=== PATIENT | female | born 1930 | race Caucasian/White ===

== ENCOUNTER 2019-09-27 18:38 | Emergency (ER) | payer MEDICARE ==
[~2019-09-27] VITALS: Ht 165.1 cm; Wt 72.6 kg
[~2019-09-27 18:38] MED LIST: ASPI-84 PO; CALC-157 PO; LEVO88TA2 PO; SIMV20TA2 PO
--- NOTE | 2019-09-27 18:45 | NUR ---
EVERARDO FROM [facility] FOR WORSENING BACK PAIN FROM S/P FALL 1 WEEK AGO DENIES -KO NO MEDICAL HX. PATIENT A/OX4, BREATHING EVEN AND UNLABORED, NO SOB NOTED, NEEDS ATTENDED. KEPT COMFORTABLE.
--- NOTE | 2019-09-27 19:02 | NUR ---
PATIENT REFUSED TO GIVE URINE SAMPLE, STATED "IM NOT HERE FOR THAT, IM HERE FOR BACK PAIN BECAUSE I FELL A FEW DAYS AGO" EXPLAINED RISKS AND BENEFITS. STILL REFUSED. DR. PAYNE MADE AWARE.
--- NOTE | 2019-09-27 19:24 | NUR ---
PATIENT CAME BACK FROM CT. ENDORSED TO [facility] FOR LILIANA.
--- NOTE | 2019-09-27 19:35 | NUR ---
PT APPEARS TO BE RESTING COMFORTABLY IN BED. WILL CONTINUE TO MONITOR THE PT.
--- NOTE | 2019-09-27 19:59 | NUR ---
DR PAYNE IS AT THE BEDSIDE SPEAKING TO THE PT RE: IMAGING FINDINGS.
--- NOTE | 2019-09-27 20:15 | NUR ---
CALLING SUNNY RE: [place]SP[place] [facility]. TRIP #: [id number] ETA: 45 MINS TO 1 HR
[2019-09-27] MEDS ORDERED: ACETAMINOPHEN W/ CODEINE#3 1 EA TABLET ONE (20:42)
[2019-09-27] MEDS: ACETAMINOPHEN W/ CODEINE#3 1 EA TABLET PO ONE (20:47)
--- NOTE | 2019-09-27 21:02 | NUR ---
REPORT GIVEN TO SUNNY MEDICAL ENGINEER. Patient discharged to home in stable condition. Written and verbal after care instructions given. Patient verbalizes understanding of instruction AND RX. COPY OF IMAGING FINDINGS AND DC PAPERWORK WAS GIVEN TO SUNNY EMT.
[2019-09-27 21:05] VITALS: BP 142/76
[2019-10-01] MEDS ORDERED: HYDR-3972 PO (16:57)
== END 2019-09-27 21:05 | disposition home or self-care (01) ==
LOC: ER 18:40
DX: S32.19XA Other fracture of sacrum, initial encounter for closed fracture (principal); M54.5 Low back pain; G89.29 Other chronic pain; I10 Essential (primary) hypertension; E03.9 Hypothyroidism, unspecified; E78.00 Pure hypercholesterolemia, unspecified; Z86.73 Personal history of transient ischemic attack (TIA), and cerebral infarction without residual deficits; Z79.82 Long term (current) use of aspirin; Z79.899 Other long term (current) drug therapy; W18.39XA Other fall on same level, initial encounter; Y93.89 Activity, other specified; Y92.89 Other specified places as the place of occurrence of the external cause; Y99.8 Other external cause status
CPT/HCPCS: 72131-TC

== ENCOUNTER 2019-09-28 13:40 | Inpatient (IN) | payer MEDICARE ==
[~2019-09-28] VITALS: Ht 165.1 cm; Wt 74.8 kg
--- NOTE | 2019-09-28 13:50 | NUR ---
SENT BY PCP; THE PATIENT IS HAVING DIFFICULTY IN WALKING WHILE AT THE AL.
--- NOTE | 2019-09-28 13:52 | NUR ---
LUMBAR SPINE CT DONE - 09/27/2019: [place] [id number], [place], [place] [id number] RADIOLOGY REPORT Patient Name: CHUY TAMB: 1930, Sex: F MR#: [id number]#: [id number] : ER Exam: CT LUMBAR SPINE WO CONTRAST Order Date & Time: 09/27/191851 Service Date & Time: 09/27/19ttending Dr: Ordering Dr: SAMIRA PAYNE - Bed#: PROCEDURE: CT Lumbar Spine without contrast. CLINICAL INDICATION: Back pain. TECHNIQUE: CT scan of the lumbar spine was performed on a multi-detector high-resolution CT scanner. Contiguous axial images were obtained without intravenous contrast. Coronal and sagittal reformatted images were also obtained. Images were reviewed on the PACS workstation. DICOM images are available. One or more of the following dose reduction techniques were used: - Automated exposure control. - Adjustment of the mA and/or kV according to patient size. - Use of iterative reconstruction technique. Exam CTD/vol = 17.38 mGy. Total exam DLP = 709.19 mGy-cm. COMPARISON: 09/12/2019. FINDINGS: There are subtle deformities of the S3 and S4 sacral vertebral bodies with mild presacral stranding suspicious for fractures. There is moderate levoscoliosis of the lumbar spine centered at L3. There is right lateral subluxation of the L2 on L3 measuring 9 mm. There is mild left lateral subluxation of the L4 on L5 measuring 5 mm. Lumbar vertebral body heights are within normal limits. There is no acute fracture of the lumbar spine. There are small to moderate marginal osteophytes at multiple levels. At T12-L1, the disk height is within normal limits. There is no central canal or neural foraminal stenosis. At L1-L2, there is mild loss of disc height and a mild diffuse disc osteophyte complex which combined with mild bilateral facet and ligamentum flavum hypertrophy results in mild to moderate central canal stenosis. There is mild to moderate bilateral neural foraminal stenosis. At L2-L3, there is mild loss of disc height and air vacuum phenomenon present. There is a moderate diffuse disc osteophyte complex which combined with mild bilateral facet and ligamentum flavum hypertrophy results in mild central canal stenosis. There is moderate to severe right neural foraminal stenosis. At L3-L4, there is moderate loss of disc height and air vacuum phenomenon. There is a moderate diffuse disc osteophyte complex which combined with mild bilateral facet and ligamentum flavum hypertrophy results in mild central canal stenosis. There is moderate to severe right neural foraminal stenosis. At L4-L5, there is mild loss of disc height and air vacuum phenomenon. There is a moderate posterior disc osteophyte complex which combined with moderate bilateral facet and ligamentum flavum hypertrophy results in mild central canal stenosis. There is moderate to severe right and mild left neural foraminal stenosis. At L5-S1, the disk height is within normal limits. There is no central canal or neural foraminal stenosis. There is no paraspinal mass or collection. There are atherosclerotic calcifications of the abdominal aorta. IMPRESSION: Subtle deformities of the S3 and S4 sacral vertebral bodies with mild presacral stranding suspicious for fractures, unchanged from 09/12/2019. Moderate lumbar levoscoliosis with lateral spondylolisthesis at L2-L3 and L4-L5. 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 There is multilevel central canal and neural foraminal stenosis as described. Dictated By: ANIRUDH TAMAYO MD Dictated Date/Time: 09/27/191939 Signed By: ANIRUDH TAMAYO MD Signed Date/Time: 09/27/191939
--- NOTE | 2019-09-28 14:00 | NUR ---
CALLED NURSING SUP FOR M/S BED.
[2019-09-28 14:15] LABS: BASOPHILS # (AUTO) 0.1 /CMM (0.0-0.2); BASOPHILS % (AUTO) 0.6 % (0.0-2.0); EOSINOPHILS % (AUTO) 1.2 % (0.0-6.0); HEMATOCRIT 40 % (33-45); HEMOGLOBIN 13.4 g/dL (11.5-14.8); LYMPHOCYTES # (AUTO) 1.6 /CMM (0.8-4.8); LYMPHOCYTES % (AUTO) 17.8 % (20.0-44.0); MEAN CORPUSCULAR HGB CONC 33 g/dl (31.0-36.0); MEAN CORPUSCULAR VOLUME 95 fL (82-100); MONOCYTES # (AUTO) 0.8 /CMM (0.1-1.30); MONOCYTES % (AUTO) 8.2 % (2.0-12.0); NEUTROPHILS # (AUTO) 6.7 /CMM (1.8-8.9); NEUTROPHILS % (AUTO) 72.2 % (43.0-81.0); PLATELET COUNT (AUTO) 321 /CMM (150-450); RED BLOOD CELL COUNT(AUTO) 4.22 MIL/uL (4.0-5.2); WHITE BLOOD COUNT (AUTO) 9.3 K/uL (4.3-11.0)
[2019-09-28] MEDS ORDERED: KETOROLAC TROMETHAMINE INJ 30 MG/ML VIAL IV ONE (14:30)
[2019-09-28 14:33] LABS: CALCIUM, SERUM 9.3 mg/dL (8.5-10.1); POTASSIUM 3.9 mmol/L (3.5-5.1)
[2019-09-28 14:39] LABS: ALBUMIN 3.2 g/dL (3.4-5.0); BILIRUBIN,DIRECT 0.1 mg/dL (0.0-0.2); BILIRUBIN,TOTAL 0.4 mg/dL (0.2-1.0); TOTAL PROTEIN, SERUM 6.9 g/dL (6.4-8.2)
[2019-09-28] MEDS ORDERED: KETOROLAC TROMETHAMINE 15 MG/ML VIAL ONE (14:45)
[2019-09-28 15:10] LABS: APPEARANCE,URINE SL CLOUDY (CLEAR); BILIRUBIN,URINE SMALL (NEGATIVE); BLOOD, URINE NEGATIVE Ery/uL (NEGATIVE); COLOR,URINE YELLOW (YELLOW); KETONES,URINE NEGATIVE (NEGATIVE); LEUKOCYTE ESTERASE ,URINE TRACE (NEGATIVE); NITRITE, URINE NEGATIVE (NEGATIVE); PH,URINE 5.5 (5.0-8.0); PROTEIN,URINE NEGATIVE (NEGATIVE); UGLUCOSE NEGATIVE (NEGATIVE); UROBILINOGEN,URINE 0.2 EU/dL (0.2)
[2019-09-28 15:16] LABS: BACTERIA,URINE Few /HPF (None Seen); RBC,URINE 0-2 /HPF (0-2); SQUAMOUS EPITHELIAL CELL,UR Few /HPF (None Seen)
--- NOTE | 2019-09-28 15:26 | NUR ---
PAGED [facility].
[2019-09-28] MEDS ORDERED: IV NS 0.9% 500 ML BAG IV ONE (15:30)
--- NOTE | 2019-09-28 15:44 | NUR ---
NURSING SUP GAVE M/S BED 304-1.
[2019-09-28] MEDS ORDERED: ZOLPIDEM TARTRATE 5 MG TABLET PO PRN (16:00)
[2019-09-28] MEDS ORDERED: IV NS 0.9% 1,000 ML IV ONE (16:00)
[2019-09-28] MEDS ORDERED: ONDANSETRON HCL/PF 4 MG/2 ML VIAL IVP PRN (16:00)
[2019-09-28] MEDS ORDERED: MAG HYDROX/AL HYDROX/SIMETH 30 ML UDC PO PRN (16:00)
[2019-09-28] MEDS ORDERED: Z GUARD REMEDY 2 OZ OINT TP PRN (16:00)
[2019-09-28] MEDS ORDERED: MAGNESIUM HYDROXIDE 30 ML UDC PO PRN (16:00)
[2019-09-28] MEDS ORDERED: ACETAMINOPHEN 325 MG TABLET PO PRN (16:00)
--- NOTE | 2019-09-28 16:02 | NUR ---
REPORT GIVEN TO SETH OF [facility]
--- NOTE | 2019-09-28 16:40 | NUR ---
MS RN NOTES PATIENT ADMITTED FROM ER REPORT GIVEN BY JEC RN, PATIENT ALERT ORIENTED X 3. NO ACUTE DISTRESS NOTED. BREATHING UNLABORED. ORIENTED TO THE ROOM. NEEDS ATTENDED. SAFETY MEASURES IN PLACE. CALL LIGHT WITHIN REACH. WILL CONTINUE TO MONITOR ACCORDINGLY.
--- NOTE | 2019-09-28 17:50 | NUR ---
MS RN NOTES PATIENT SEEN AND EVALUATED BY DR GRACIA COPE.
--- NOTE | 2019-09-28 19:15 | NUR ---
MS RN OPENING NOTES: RECEIVED PATIENT IN BED EATING DINNER, A/O X4. COMFORTABLE. NOT IN PAIN. CALL LIGHT WITHIN REACH. BED IN LOWEST AND LOCKED POSITION. BED ALARM ON.
--- NOTE | 2019-09-28 19:15 | NUR ---
MS RN NOTES PATIENT ALERT ORIENTED X 3. NO ACUTE DISTRESS NOTED. BREATHING UNLABORED. IV ACCESS PATENT AND INTACT. NEEDS ATTENDED AND ANTICIPATED. SAFETY MEASURES IN PLACE. CALL LIGHT WITHIN REACH. WILL ENDORSE TO NIGHT NURSE FOR CONTINUITY OF CARE.
[2019-09-28 20:00] VITALS: BP 133/66
--- NOTE | 2019-09-28 22:49 | NUR ---
INFORMED HOUSING INSPECTOR RONY RE: NO VTE PROPHYLAXIS, ORDERED SCD'S ON BOTH LEGS, AND APPLIED.
--- NOTE | 2019-09-28 23:33 | NUR ---
PATIENT REFUSED SCD's. EXPLAINED THE IMPORTANCE OF IT.
--- NOTE | 2019-09-29 05:00 | NUR ---
MS RN CLOSING NOTES: PATIENT IS RESTING COMFORTABLY IN BED. AWAKE ALERT AND ORIENTED X4. NO ACUTE EVENTS OVERNIGHT. BEDREST. CALL LIGHT WITHIN REACH. NO C/O PAIN. BED IN LOWEST AND LOCKED POSITION. BED ALARM ON.
--- NOTE | 2019-09-29 07:31 | NUR ---
MS RN OPENING NOTE RECEIVED PATIENT IN BED SLEEPING COMFORTABLY. PATIENT IN NO ACUTE DISTRESS. NO SOB NOTED. PATIENT BREATHING IS EVEN AND UNLABORED. PATIENT WITH NO FACIAL GRIMACING NOTED. SAFETY PRECAUTIONS IN PLACE. PATIENT BED IS LOCKED AND IN LOWEST POSITION. CALL LIGHT WITHIN REACH. WILL CONTINUE TO MONITOR.
[2019-09-29 08:00] VITALS: BP 140/71
[2019-09-29] MEDS: SIMVASTATIN 20 MG TABLET PO SCH (08:10)
[2019-09-29] MEDS: LEVOTHYROXINE SODIUM 88 MCG TABLET PO SCH (08:10)
[2019-09-29 08:48] LABS: BASOPHILS % (AUTO) 0.3 % (0.0-2.0); EOSINOPHILS % (AUTO) 1.7 % (0.0-6.0); HEMATOCRIT 37 % (33-45); HEMOGLOBIN 12.4 g/dL (11.5-14.8); LYMPHOCYTES # (AUTO) 1.4 /CMM (0.8-4.8); LYMPHOCYTES % (AUTO) 16.8 % (20.0-44.0); MEAN CORPUSCULAR HGB CONC 33 g/dl (31.0-36.0); MEAN CORPUSCULAR VOLUME 95 fL (82-100); MONOCYTES # (AUTO) 0.6 /CMM (0.1-1.30); MONOCYTES % (AUTO) 6.8 % (2.0-12.0); NEUTROPHILS # (AUTO) 6.2 /CMM (1.8-8.9); NEUTROPHILS % (AUTO) 74.4 % (43.0-81.0); PLATELET COUNT (AUTO) 287 /CMM (150-450); RED BLOOD CELL COUNT(AUTO) 3.95 MIL/uL (4.0-5.2); WHITE BLOOD COUNT (AUTO) 8.3 K/uL (4.3-11.0)
[2019-09-29 09:04] LABS: CALCIUM, SERUM 8.5 mg/dL (8.5-10.1); CREATININE 0.7 mg/dL (0.6-1.3); MAGNESIUM 1.9 mg/dL (1.8-2.4); PHOSPHORUS 2.6 mg/dL (2.5-4.9)
[2019-09-29] MEDS: IV NS 0.9% 1,000 ML BAG IV PRN (09:20)
[2019-09-29] MEDS: HYDROCODONE/APAP 5/325MG 1 EACH TABLET PO PRN ×2 (15:34→20:36)
[2019-09-29 16:00] VITALS: BP 141/67
--- NOTE | 2019-09-29 18:43 | NUR ---
MS RN CLOSING NOTE PATIENT IN BED RESTING COMFORTABLY. PATIENT IN NO ACUTE DISTRESS. NO SOB NOTED. PATIENT BREATHING IS EVEN AND UNLABORED. PATIENT EXPERIENCING 3/10 GENERALIZED PAIN BUT IS TOLERABLE PER PATIENT. PATIENT SON AT THE BEDSIDE. PATIENT KEPT CLEAN, DRY, AND COMFORTABLE THROUGHOUT SHIFT. PATIENT REPOSITIONED Q2H WITH EXTREMITIES OFFLOADED ON PILLOWS. PATIENT NEEDS AND CONCERNS ADDRESSED. PATIENT BED IS LOCKED AND IN LOWEST POSITION. CALL LIGHT WITHIN REACH. WILL ENDORSE CARE TO PM SHIFT FOR LILIANA.
--- NOTE | 2019-09-29 19:30 | NUR ---
MS RN OPENING NOTE RECEIVED PATIENT IN BED. A/OX4. TOLERATING ROOM AIR. RESPIRATIONS ARE EVEN AND UNLABORED. NO S/S SOB. C/O PAIN, APPLIED HEATING PACK. IN NO APPARENT DISTRESS. IV ACCESS IN RFA #20 RUNNING NS @75ML/HR. BED IS LOW AND LOCKED, SIDE RAILS UP X2, HOB ELEVATED 30 DEGREES, BED ALARM ON. CALL LIGHT WITHIN REACH. WILL CONTINUE TO MONITOR
[2019-09-29 20:00] VITALS: BP 123/74
--- NOTE | 2019-09-29 20:38 | NUR ---
MS RN NOTE ADMINISTERED PRN NORCO 5/325 FOR PAIN 7/10 IN NECK. WILL CONTINUE TO MONITOR.
[2019-09-30] MEDS: IV NS 0.9% 1,000 ML BAG IV PRN ×2 (00:22→16:12)
[2019-09-30] MEDS: HYDROCODONE/APAP 5/325MG 1 EACH TABLET PO PRN ×3 (03:37→19:19)
--- NOTE | 2019-09-30 03:41 | NUR ---
MS RN NOTE ADMINISTERED PRN NORCO 5/325 FOR PAIN 5/10 IN NECK. WILL CONTINUE TO MONITOR.
--- NOTE | 2019-09-30 06:22 | NUR ---
MS RN CLOSING NOTE PATIENT IN BED. A/OX4. REMAINS TOLERATING ROOM AIR. RESPIRATIONS ARE EVEN AND UNLABORED. NO SOB NOTED. MANAGED PAIN WITH NORCO 5/325. ALSO APPLIED HEATING PACK THROUGHOUT NIGHT. NO DISTRESS NOTED. IV ACCESS REMAINS IN RFA #20 RUNNING NS @75ML/HR. BED IS LOW AND LOCKED, SIDE RAILS UP X2, HOB ELEVATED 30 DEGREES, BED ALARM ON. CALL LIGHT WITHIN REACH. WILL ENDORSE TO NEXT SHIFT FOR LILIANA.
[2019-09-30 07:18] LABS: BASOPHILS % (AUTO) 0.6 % (0.0-2.0); EOSINOPHILS % (AUTO) 1.9 % (0.0-6.0); HEMATOCRIT 35 % (33-45); HEMOGLOBIN 11.8 g/dL (11.5-14.8); LYMPHOCYTES # (AUTO) 1.6 /CMM (0.8-4.8); MEAN CORPUSCULAR HGB CONC 33 g/dl (31.0-36.0); MEAN CORPUSCULAR VOLUME 95 fL (82-100); MONOCYTES # (AUTO) 0.6 /CMM (0.1-1.30); MONOCYTES % (AUTO) 9.8 % (2.0-12.0); NEUTROPHILS % (AUTO) 62.7 % (43.0-81.0); PLATELET COUNT (AUTO) 268 /CMM (150-450); RED BLOOD CELL COUNT(AUTO) 3.72 MIL/uL (4.0-5.2); WHITE BLOOD COUNT (AUTO) 6.4 K/uL (4.3-11.0)
[2019-09-30 07:21] LABS: CALCIUM, SERUM 8.6 mg/dL (8.5-10.1); CREATININE 0.6 mg/dL (0.6-1.3); POTASSIUM 4.2 mmol/L (3.5-5.1)
[2019-09-30] MEDS: LEVOTHYROXINE SODIUM 88 MCG TABLET PO SCH (07:27)
--- NOTE | 2019-09-30 07:30 | NUR ---
MS RN OPENING NOTE RECEIVED PATIENT IN BED SLEEPING COMFORTABLY. PATIENT IN NO ACUTE DISTRESS. NO SOB NOTED. PATIENT BREATHING IS EVEN AND UNLABORED. PATIENT WITH NO FACIAL GRIMACING NOTED. SAFETY PRECAUTIONS IN PLACE. DR. COPE SEEN AND EVALUATED PATIENT. PATIENT BED IS LOCKED AND IN LOWEST POSITION. CALL LIGHT WITHIN REACH. WILL CONTINUE TO MONITOR.
[2019-09-30 08:00] VITALS: BP 122/74
[2019-09-30] MEDS: SIMVASTATIN 20 MG TABLET PO SCH (09:09)
[2019-09-30 16:00] VITALS: BP 114/66
--- NOTE | 2019-09-30 18:00 | NUR ---
MS RN NOTE PATIENT ALERT AND ORIENTED X4. PER PATIENT WISHES AND STATED TO REMAIN DNR/DNI. SON IS AWARE. MD AWARE.
--- NOTE | 2019-09-30 18:16 | NUR ---
MS RN CLOSING NOTE PATIENT IN BED RESTING COMFORTABLY. PATIENT IN NO ACUTE DISTRESS. NO SOB NOTED. PATIENT BREATHING IS EVEN AND UNLABORED. PATIENT EXPERIENCING NO PAIN AT THIS TIME. PATIENT SON AT THE BEDSIDE. PATIENT KEPT CLEAN, DRY, AND COMFORTABLE THROUGHOUT SHIFT. PATIENT REPOSITIONED Q2H WITH EXTREMITIES OFFLOADED ON PILLOWS. PATIENT NEEDS AND CONCERNS ADDRESSED. PATIENT BED IS LOCKED AND IN LOWEST POSITION. CALL LIGHT WITHIN REACH. WILL ENDORSE CARE TO PM SHIFT FOR LILIANA.
--- NOTE | 2019-09-30 19:00 | NUR ---
MS RN NOTE RECEIVED PT IN STABLE CONDITION A/O X4, CURRENTLY WATCHING TV. NO SIGNS OF SOB OR DISTRESS, NO C/O PAIN OR N/V. IV IN RFA #[address] WITH IVF INFUSING, TOLERATING WELL. ALL CURRENT NEEDS ATTENDED TO. BED LOW, LOCKED, UPPER RAILS UP, AND CALL LIGHT WITHIN REACH. WILL CONT. TO MONITOR.
[2019-09-30 20:02] VITALS: BP 124/60
--- NOTE | 2019-09-30 21:00 | NUR ---
MS RN NOTE PT REFUSING IVF AFTER MULTIPLE ATTEMPTS, RISKS AND BENEFITS MADE AWARE. PT STATES SHE IS ONLY HERE FOR PHYSICAL THERAPY. WILL CONT. TO MONITOR.
[2019-10-01] MEDS: HYDROCODONE/APAP 5/325MG 1 EACH TABLET PO PRN ×4 (00:34→17:15)
--- NOTE | 2019-10-01 05:12 | NUR ---
MS RN NOTE DOG SITTER ATTEMPTED 3X TO DRAW BLOOD FOR MORNING LABS, PT REFUSES. RISKS AND BENEFITS MADE AWARE WITH VERBALIZATION OF UNDERSTANDING. ALSO, ASKED LAB TO RETURN LATER AND DO ONE MORE ATTEMPT.
--- NOTE | 2019-10-01 06:22 | NUR ---
MS RN NOTE PT REMAINS IN STABLE CONDITION A/O X4, CURRENTLY RESTING, EASILY RESPONDS TO NAME. NO SIGNS OF SOB OR DISTRESS, NO C/O PAIN OR N/V. IV IN RFA #[address] PT STILL REFUSES FOR IVF TO BE PLACED. ALL CURRENT NEEDS ATTENDED TO. BED LOW, LOCKED, UPPER RAILS UP, AND CALL LIGHT WITHIN REACH. WILL CONT. TO MONITOR AND ENDORSE TO NEXT SHIFT FOR LILIANA.
--- NOTE | 2019-10-01 07:30 | NUR ---
MS RN NOTES PATIENT RECEIVED RESTING INSIDE ROOM. AWAKE, ALERT AND ORIENTED X 4. NO ACUTE DISTRESS. PATIENT CALM AND RELAXED. RECEIVED ENDORSEMENT THAT PATIENT REFUSES IVF. RISKS AND BENEFITS EXPLAINED BUT TO NO AVAIL, PATIENT STRONGLY REFUSED IVF. SAFETY PRECAUTIONS IN PLACE. WILL CONTINUE TO MONITOR. BED LOCKED AND IN LOW POSITION. BILATERAL UPPER SIDE RAILS UP AND LOCKED. CALL LIGHT WITHIN EASY REACH
[2019-10-01] MEDS: LEVOTHYROXINE SODIUM 88 MCG TABLET PO SCH (07:38)
[2019-10-01 08:03] VITALS: BP 106/75
[2019-10-01 08:23] LABS: BASOPHILS # (AUTO) 0.1 /CMM (0.0-0.2); BASOPHILS % (AUTO) 0.6 % (0.0-2.0); EOSINOPHILS % (AUTO) 1.7 % (0.0-6.0); HEMATOCRIT 40 % (33-45); HEMOGLOBIN 13.3 g/dL (11.5-14.8); LYMPHOCYTES % (AUTO) 23.9 % (20.0-44.0); MEAN CORPUSCULAR HGB CONC 33 g/dl (31.0-36.0); MEAN CORPUSCULAR VOLUME 94 fL (82-100); MONOCYTES # (AUTO) 0.8 /CMM (0.1-1.30); NEUTROPHILS # (AUTO) 5.3 /CMM (1.8-8.9); NEUTROPHILS % (AUTO) 63.8 % (43.0-81.0); PLATELET COUNT (AUTO) 295 /CMM (150-450); RED BLOOD CELL COUNT(AUTO) 4.27 MIL/uL (4.0-5.2); WHITE BLOOD COUNT (AUTO) 8.3 K/uL (4.3-11.0)
[2019-10-01] MEDS: SIMVASTATIN 20 MG TABLET PO SCH (08:33)
[2019-10-01 08:42] LABS: CALCIUM, SERUM 8.9 mg/dL (8.5-10.1); CREATININE 0.7 mg/dL (0.6-1.3); POTASSIUM 4.2 mmol/L (3.5-5.1)
--- NOTE | 2019-10-01 14:50 | NUR ---
MS RN NOTES PLACED CALL TO [facility] AND GAVE REPORT TO ANTIONE AMIN
[2019-10-01 15:43] VITALS: BP_SYST 118; BP_SYST 139; BP_DIAS 70; BP_DIAS 71
[2019-10-01] MEDS ORDERED: HYDR-3972 PO (16:57)
--- NOTE | 2019-10-01 18:11 | NUR ---
MS RN NOTES PATIENT FOR DISCHARGE TODAY. TO TRANSFER TO [facility]. ALL BELONGINGS COMPLETE, NO REPORT OF MISSING INVENTORY. IV REMOVED WITH TIP INTACT, PRESSURE DRESSING PLACED ON SITE. PATIENT LEFT UNIT AT 1810 VIA GURNEY IN STABLE CONDITION. NO ACUTE DISTRESS. DENIES ANY PAIN OR DISCOMFORT. ID BAND REMOVED. NO NEW SKIN BREAKDOWN NOTED ON DISCHARGE. MD AWARE OF DISCHARGE
== END 2019-10-01 18:12 | DRG 552 ==
LOC: ER 13:47 → MED 15:45
PROVIDERS: ADMIT Family Medicine; ATTEND Family Medicine
DX: S32.10XA Unspecified fracture of sacrum, initial encounter for closed fracture (principal); E44.1 Mild protein-calorie malnutrition; W19.XXXA Unspecified fall, initial encounter; Y92.129 Unspecified place in nursing home as the place of occurrence of the external cause; E78.5 Hyperlipidemia, unspecified; M81.0 Age-related osteoporosis without current pathological fracture; R73.9 Hyperglycemia, unspecified; Z96.659 Presence of unspecified artificial knee joint; Z86.73 Personal history of transient ischemic attack (TIA), and cerebral infarction without residual deficits; Z79.899 Other long term (current) drug therapy; Z79.890 Hormone replacement therapy; Z79.82 Long term (current) use of aspirin; Z66 Do not resuscitate; M53.3 Sacrococcygeal disorders, not elsewhere classified; M19.90 Unspecified osteoarthritis, unspecified site; I10 Essential (primary) hypertension; E88.81 Metabolic syndrome and other insulin resistance; E03.9 Hypothyroidism, unspecified; I49.9 Cardiac arrhythmia, unspecified; R74.8 Abnormal levels of other serum enzymes
CPT/HCPCS: 36415; 71045-TC; 72131-TC; 80048-TC; 80061-TC; 80076-TC; 81000-TC; 83735-TC; 84100-TC; 85025-TC; 87081-TC; 97110-TC; 97112-TC; 97530-TC; G0378; J1885; J7030; J7040